=== PATIENT | male | born 1950 | race Caucasian/White ===

== ENCOUNTER → 2017-10-29 | Outpatient (CLI) | payer MEDICARE ==
[2017-10-29 09:42] LABS: HEMATOCRIT 42.9 % (42.0-52.0); HEMOGLOBIN 14.3 g/dl (13.5-17.5); MEAN CORPUSCULAR HEMOGLOBIN 29.5 pg (27.0-33.0); MEAN CORPUSCULAR HGB CONC 33.3 g/dl (32.0-36.5); MEAN CORPUSCULAR VOLUME 88.5 fl (80.0-96.0); PLATELET COUNT, AUTOMATED 229 10^3/uL (150-450); RED BLOOD COUNT 4.85 10^6/uL (4.30-6.10); RED CELL DISTRIBUTION WIDTH 12.3 % (11.5-14.5); WHITE BLOOD COUNT 6.5 10^3/uL (4.0-10.0)
[2017-10-29 09:53] LABS: INR 0.96; PROTHROMBIN TIME 12.9 SECONDS (12.1-14.4)
[2017-10-29 10:29] LABS: ERYTHROCYTE SEDIMENTATION RATE 10 mm/hr (0-20)
[2017-10-29 10:32] LABS: ALBUMIN 3.8 GM/DL (3.2-5.2); ALBUMIN/GLOBULIN RATIO 1.27 (1.00-1.93); ALKALINE PHOSPHATASE 68 U/L (45-117); ALT/SGPT 31 U/L (12-78); ANION GAP 6 MEQ/L (8-16); AST/SGOT 17 U/L (7-37); BILIRUBIN,TOTAL 0.6 MG/DL (0.2-1.0); BLOOD UREA NITROGEN 26 MG/DL (7-18); CALCIUM LEVEL 8.8 MG/DL (8.8-10.2); CARBON DIOXIDE LEVEL 30 MEQ/L (21-32); CHLORIDE LEVEL 107 MEQ/L (98-107); CREATININE FOR GFR 0.86 MG/DL (0.70-1.30); GLOMERULAR FILTRATION RATE > 60.0 (>49); GLUCOSE, FASTING 55 MG/DL (70-100); POTASSIUM SERUM 3.9 MEQ/L (3.5-5.1); SODIUM LEVEL 143 MEQ/L (136-145); TOTAL PROTEIN 6.8 GM/DL (6.4-8.2)
== END ==
LOC: M LAB 07:50
DX: Z01.818 Encounter for other preprocedural examination (principal); M17.12 Unilateral primary osteoarthritis, left knee; Z79.01 Long term (current) use of anticoagulants
CPT/HCPCS: 71046

== ENCOUNTER 2017-11-16 08:33 | Inpatient (IN) | payer MEDICARE ==
[2017-11-16] MEDS: ACETAMINOPHEN 500 MG TAB PO (08:45)
[2017-11-16] MEDS: LR 1,000 ML IV ×3 (09:00→14:00)
[2017-11-16] MEDS ORDERED: fentaNYL 100 MCG/2 ML INJECTION (J3010) As Ordered ×2 (09:06→09:24)
[2017-11-16] MEDS ORDERED: MIDAZOLAM INJ 2 MG/2 ML VIAL (J2250) As Ordered ×2 (09:06→09:23)
[2017-11-16] MEDS ORDERED: dexameTHASONE 10 MG/1 ML VIAL PRES.FREE (J1100) As Ordered (09:07)
[2017-11-16] MEDS ORDERED: EPINEPHrine INJ 1 MG/ML 1ML AMP As Ordered (09:07)
[2017-11-16] MEDS ORDERED: PROPOFOL 200 MG/20 ML VIAL As Ordered ×4 (09:23)
[2017-11-16] MEDS ORDERED: LIDOCAINE 2% INJ 100 MG/5 ML SDV (FOR ANES.) As Ordered (09:23)
[2017-11-16] MEDS: MIDAZOLAM INJ 2 MG/2 ML VIAL (J2250) IV (09:23)
[2017-11-16] MEDS ORDERED: ONDANSETRON 4MG/2ML VIAL (J2405) As Ordered (09:23)
[2017-11-16] MEDS: fentaNYL 100 MCG/2 ML INJECTION (J3010) IV (09:23)
[2017-11-16] MEDS ORDERED: ROPIvacaine 0.5% 30 ML INJECTION (J2795 PER 1MG) (10:27)
[2017-11-16] MEDS: EPINEPHrine INJ 1 MG/ML 1ML AMP As Ordered (11:36)
[2017-11-16] MEDS: TRANEXAMIC ACID 100 MG/ML 10ML VIAL As Ordered (11:37)
[2017-11-16] MEDS: ceFAZolin 1GM INJ (J0690 PER 500MG) As Ordered (11:37)
[2017-11-16] MEDS: BUPIVACAINE HCL 0.25% 10 ML VIAL As Ordered (12:43)
[2017-11-16] MEDS: BUPIVACAINE LIPOSOME/PF 1.3% 20 ML VIAL (13.3MG/ML)(EXPAREL) As Ordered (12:43)
[2017-11-16] MEDS ORDERED: MORPHINE 1MG/ML IN 0.9% NACL 100ML IV BAG As Ordered (12:59)
[2017-11-16] MEDS ORDERED: NALBUPHINE HCL 10 MG/ML AMP (J2300) IV (14:00)
[2017-11-16] MEDS ORDERED: MORPHINE 1MG/ML IN 0.9% NACL 100ML IV BAG IV (14:00)
[2017-11-16] MEDS ORDERED: ACETAMINOPHEN TAB 650MG DOSE (2X325MG) PO (14:00)
[2017-11-16] MEDS ORDERED: NALOXONE INJ 0.4 MG/1 ML VIAL (J2310) IV (14:00)
[2017-11-16] MEDS ORDERED: ONDANSETRON 4MG/2ML VIAL (J2405) IV ×2 (14:00)
[2017-11-16] MEDS ORDERED: fentaNYL 100 MCG/2 ML INJECTION (J3010) IV (14:00)
[2017-11-16] MEDS ORDERED: NORCO, ANEXSIA 5/325MG TABLET (HYDROcodone/ACETAMINOPHEN) PO (14:00)
[2017-11-16] MEDS ORDERED: FLEET ENEMA PR (14:00)
[2017-11-16] MEDS ORDERED: EPIDURAL/PCA KEYS XX (14:00)
[2017-11-16] MEDS ORDERED: diphenhydrAMINE INJ 50MG/ML VIAL (J1200) IV (14:00)
[2017-11-16 15:32] LABS: BASO % 0.4 % (0.0-1.0); EOS % 0.1 % (0.0-3.0); HEMATOCRIT 43.3 % (42.0-52.0); HEMOGLOBIN 14.6 g/dl (13.5-17.5); IMMATURE GRANULOCYTE % 0.5 % (0-3.0); LYMPH # 0.9 10^3/uL (1.5-4.5); LYMPH % 11.5 % (24.0-44.0); MEAN CORPUSCULAR HEMOGLOBIN 29.6 pg (27.0-33.0); MEAN CORPUSCULAR HGB CONC 33.7 g/dl (32.0-36.5); MEAN CORPUSCULAR VOLUME 87.7 fl (80.0-96.0); MONO # 0.2 10^3/uL (0.0-0.8); MONO % 2.6 % (0.0-5.0); NEUTROPHILS # 6.5 10^3/uL (1.8-7.7); NEUTROPHILS % 84.9 % (36.0-66.0); PLATELET COUNT, AUTOMATED 236 10^3/uL (150-450); RED BLOOD COUNT 4.94 10^6/uL (4.30-6.10); RED CELL DISTRIBUTION WIDTH 12.6 % (11.5-14.5); WHITE BLOOD COUNT 7.7 10^3/uL (4.0-10.0)
[2017-11-16 16:09] LABS: ALBUMIN 3.7 GM/DL (3.2-5.2); ALBUMIN/GLOBULIN RATIO 1.23 (1.00-1.93); ALKALINE PHOSPHATASE 63 U/L (45-117); ALT/SGPT 28 U/L (12-78); ANION GAP 9 MEQ/L (8-16); AST/SGOT 17 U/L (7-37); BILIRUBIN,TOTAL 0.3 MG/DL (0.2-1.0); BLOOD UREA NITROGEN 18 MG/DL (7-18); CARBON DIOXIDE LEVEL 27 MEQ/L (21-32); CHLORIDE LEVEL 104 MEQ/L (98-107); CPK CREATINE PHOSPHOKINASE 78 U/L (39-308); CREATININE FOR GFR 0.91 MG/DL (0.70-1.30); FREE THYROXINE INDEX 2.5 % (1.4-3.8); GLOMERULAR FILTRATION RATE > 60.0 (>49); GLUCOSE, FASTING 104 MG/DL (70-100); MAGNESIUM LEVEL 2.4 MG/DL (1.8-2.4); MB/CK RELATIVE INDEX 1.67 (< OR =4); POTASSIUM SERUM 5.5 MEQ/L (3.5-5.1); SODIUM LEVEL 140 MEQ/L (136-145); T UPTAKE 35 % (33-40); THYROXINE (T4) 7.1 UG/DL (4.5-12.0); TOTAL PROTEIN 6.7 GM/DL (6.4-8.2); TROPONIN I < 0.02 NG/ML (< 0.10)
[2017-11-16] MEDS: NS 1,000 ML IV (16:43)
[2017-11-16 17:50] LABS: POTASSIUM SERUM 4.4 MEQ/L (3.5-5.1)
[2017-11-16] MEDS: SENOKOT S TAB PO (21:02)
[2017-11-16 22:45] LABS: ANION GAP 10 MEQ/L (8-16); BLOOD UREA NITROGEN 19 MG/DL (7-18); CALCIUM LEVEL 8.8 MG/DL (8.8-10.2); CARBON DIOXIDE LEVEL 27 MEQ/L (21-32); CHLORIDE LEVEL 105 MEQ/L (98-107); CPK CREATINE PHOSPHOKINASE 69 U/L (39-308); GLOMERULAR FILTRATION RATE > 60.0 (>49); GLUCOSE, FASTING 134 MG/DL (70-100); MB/CK RELATIVE INDEX 1.59 (< OR =4); POTASSIUM SERUM 4.7 MEQ/L (3.5-5.1); SODIUM LEVEL 142 MEQ/L (136-145); TROPONIN I < 0.02 NG/ML (< 0.10)
[2017-11-17 06:14] LABS: HEMATOCRIT 40.9 % (42.0-52.0); HEMOGLOBIN 13.5 g/dl (13.5-17.5); MEAN CORPUSCULAR HEMOGLOBIN 29.2 pg (27.0-33.0); MEAN CORPUSCULAR VOLUME 88.3 fl (80.0-96.0); PLATELET COUNT, AUTOMATED 234 10^3/uL (150-450); RED BLOOD COUNT 4.63 10^6/uL (4.30-6.10); RED CELL DISTRIBUTION WIDTH 12.6 % (11.5-14.5); WHITE BLOOD COUNT 11.5 10^3/uL (4.0-10.0)
[2017-11-17 06:37] LABS: ANION GAP 9 MEQ/L (8-16); BLOOD UREA NITROGEN 22 MG/DL (7-18); CALCIUM LEVEL 8.9 MG/DL (8.8-10.2); CARBON DIOXIDE LEVEL 26 MEQ/L (21-32); CHLORIDE LEVEL 107 MEQ/L (98-107); CREATININE FOR GFR 1.07 MG/DL (0.70-1.30); GLOMERULAR FILTRATION RATE > 60.0 (>49); GLUCOSE, FASTING 141 MG/DL (70-100); MAGNESIUM LEVEL 2.2 MG/DL (1.8-2.4); POTASSIUM SERUM 4.3 MEQ/L (3.5-5.1); SODIUM LEVEL 142 MEQ/L (136-145)
[2017-11-17] MEDS ORDERED: ONDANSETRON 4 MG TAB (S0181) PO (06:45)
[2017-11-17] MEDS ORDERED: PERCOCET 5MG/325MG TAB PO (06:45)
[2017-11-17] MEDS: SENOKOT S TAB PO ×2 (08:26→20:00)
[2017-11-17] MEDS: MIRALAX *UNIT DOSE* 17GM PACKET PO (08:26)
[2017-11-17] MEDS ORDERED: SLF 3 ML SYR IV (09:00)
[2017-11-17] MEDS: PERCOCET 5MG/325MG TAB PO ×3 (10:07→20:01)
[2017-11-17] MEDS: SLF 3 ML SYR IV ×2 (11:37→22:00)
[2017-11-17] MEDS: RIVAROXABAN 10 MG TAB (XARELTO) PO (17:16)
[2017-11-18] MEDS: PERCOCET 5MG/325MG TAB PO (05:20)
[2017-11-18] MEDS: SLF 3 ML SYR IV (05:20)
[2017-11-18 07:00] LABS: HEMATOCRIT 37.4 % (42.0-52.0); HEMOGLOBIN 12.4 g/dl (13.5-17.5); MEAN CORPUSCULAR HEMOGLOBIN 29.3 pg (27.0-33.0); MEAN CORPUSCULAR HGB CONC 33.2 g/dl (32.0-36.5); MEAN CORPUSCULAR VOLUME 88.4 fl (80.0-96.0); PLATELET COUNT, AUTOMATED 203 10^3/uL (150-450); RED BLOOD COUNT 4.23 10^6/uL (4.30-6.10); RED CELL DISTRIBUTION WIDTH 12.8 % (11.5-14.5); WHITE BLOOD COUNT 10.1 10^3/uL (4.0-10.0)
[2017-11-18 07:21] LABS: ANION GAP 9 MEQ/L (8-16); BLOOD UREA NITROGEN 21 MG/DL (7-18); CALCIUM LEVEL 8.3 MG/DL (8.8-10.2); CARBON DIOXIDE LEVEL 26 MEQ/L (21-32); CHLORIDE LEVEL 107 MEQ/L (98-107); CREATININE FOR GFR 0.74 MG/DL (0.70-1.30); GLOMERULAR FILTRATION RATE > 60.0 (>49); GLUCOSE, FASTING 107 MG/DL (70-100); MAGNESIUM LEVEL 2.1 MG/DL (1.8-2.4); POTASSIUM SERUM 3.9 MEQ/L (3.5-5.1); SODIUM LEVEL 142 MEQ/L (136-145)
[2017-11-18] MEDS: MIRALAX *UNIT DOSE* 17GM PACKET PO (09:36)
[2017-11-18] MEDS: SENOKOT S TAB PO (09:36)
== END 2017-11-18 11:05 | disposition home or self-care (01) | DRG 470 ==
LOC: M OR 08:33 → M MS5PR 11-17 13:20 → M PCU 15:45
PROC: 0SRD0JZ Replacement of Left Knee Joint with Synthetic Substitute, Open Approach (ICD-10-PCS; principal; 2017-11-16 10:40)
DX: M17.12 Unilateral primary osteoarthritis, left knee (principal); E87.5 Hyperkalemia; I49.3 Ventricular premature depolarization

== ENCOUNTER → 2019-11-03 | Outpatient (CLI) | payer MEDICARE ==
[~2019-11-03] MED LIST: IBUP-1022 PO; PERC5TAB12 PO; XARE10TA PO
--- NOTE | 2019-11-06 09:23 | ECHO ---
DATE OF PROCEDURE: 11/03/2019 Age: 69 REFERRING PROVIDER: Dr. Natali King DO PATIENT LOCATION: Outpatient. REASON FOR STUDY: Heart murmur. 2D MEASUREMENTS: IVS 0.9 cm LV 6.4 cm LVPW 0.8 cm LA 5.3 cm Aorta 2.9 cm IVC 1.0 cm DOPPLER MEASUREMENT Peak velocity across the aortic valve 2.2 mm/s Peak velocity across the LVOT 0.8 mm/s Peak gradient across the aortic valve 20 mmHg Mean gradient across the aortic valve 11 mmHg Mitral E 1.2 Mitral A 0.6 with a ratio of 1.9 Maximum tricuspid valve velocity 2.7 mm/s 2D COMMENTS: 1. Mildly elevated left ventricle with normal left ventricular wall thickness and a normal global left ventricular systolic function. The estimated left ventricular systolic ejection fraction is 60% to 65%. 2. Moderately enlarged left atrium. Normal right atrium and right ventricle. 3. The atrial septum appears to be normal without evidence of defect or shunt. 4. Normal aortic root. 5. Mildly calcified aortic valve with mildly restricted leaflet motion. Mildly calcified mitral annulus with normal anterior mitral valve leaflet motion. Normal tricuspid valve and pulmonic valve. The proximal pulmonary artery branches appear to be normal in size. 6. The inferior vena cava was normal in size, central venous pressure might be normal. 7. Doppler detects moderately severe mitral regurgitation and mild tricuspid regurgitation. The calculated pulmonary artery systolic pressure varies between 30 to 40 mmHg. Assessment of the left ventricular diastolic function appeared to be normal. IMPRESSION: 1. Normal global left ventricular systolic function with a mildly enlarged left ventricle. Assessment of the left ventricular diastolic function appeared to be normal. 2. Aortic valve sclerosis with mild aortic stenosis, but no aortic regurgitation. 3. Mitral annulus calcification with moderately enlarged left atrium and nwjrbrbs-[id number] mitral regurgitation. 4. Mild tricuspid regurgitation with mild pulmonary hypertension. MTDD
== END ==
LOC: M CARPUL 09:18
PROVIDERS: ATTEND Family Medicine
DX: I35.0 Nonrheumatic aortic (valve) stenosis (principal); I34.0 Nonrheumatic mitral (valve) insufficiency; I36.1 Nonrheumatic tricuspid (valve) insufficiency; I27.20 Pulmonary hypertension, unspecified; R94.31 Abnormal electrocardiogram [ECG] [EKG]; R63.5 Abnormal weight gain; R00.8 Other abnormalities of heart beat; R00.1 Bradycardia, unspecified; R01.1 Cardiac murmur, unspecified

== ENCOUNTER → 2020-01-05 | Outpatient (CLI) | payer MEDICARE ==
[2020-01-05 10:56] LABS: HEMATOCRIT 45.1 % (42.0-52.0); HEMOGLOBIN 14.6 g/dl (13.5-17.5); MEAN CORPUSCULAR HEMOGLOBIN 29.6 pg (27.0-33.0); MEAN CORPUSCULAR HGB CONC 32.4 g/dl (32.0-36.5); MEAN CORPUSCULAR VOLUME 91.5 fl (80.0-96.0); PLATELET COUNT, AUTOMATED 253 10^3/uL (150-450); RED BLOOD COUNT 4.93 10^6/uL (4.30-6.10)
[2020-01-05 11:05] LABS: INR 0.92; PROTHROMBIN TIME 12.5 SECONDS (12.5-14.3)
[2020-01-05 11:16] LABS: ALBUMIN 3.9 GM/DL (3.2-5.2); ALT/SGPT 20 U/L (12-78); BILIRUBIN,TOTAL 0.5 MG/DL (0.2-1.0); BLOOD UREA NITROGEN 23 MG/DL (7-18); CALCIUM LEVEL 9.4 MG/DL (8.8-10.2); CARBON DIOXIDE LEVEL 31 MEQ/L (21-32); CHLORIDE LEVEL 105 MEQ/L (98-107); CREATININE FOR GFR 0.99 MG/DL (0.70-1.30); GLOMERULAR FILTRATION RATE > 60.0 (>49); GLUCOSE, FASTING 89 MG/DL (70-100); POTASSIUM SERUM 4.9 MEQ/L (3.5-5.1); SODIUM LEVEL 140 MEQ/L (136-145); TOTAL PROTEIN 7.3 GM/DL (6.4-8.2)
[2020-01-05 11:30] LABS: ERYTHROCYTE SEDIMENTATION RATE 12 mm/hr (0-20)
== END ==
LOC: M LAB 09:25
PROVIDERS: ATTEND Family Medicine
DX: Z01.812 Encounter for preprocedural laboratory examination (principal); M17.11 Unilateral primary osteoarthritis, right knee

== ENCOUNTER → 2020-01-24 | Outpatient (CLI) | payer MEDICARE ==
[~2020-01-24] MED LIST changes: +[UNRECOGNIZED DRUG - CODE] PO
== END ==
LOC: M LABSMTC 09:54
PROVIDERS: ATTEND Anesthesiology
DX: Z01.812 Encounter for preprocedural laboratory examination (principal); Z20.828 Contact with and (suspected) exposure to other viral communicable diseases

== ENCOUNTER 2020-01-29 06:55 | Inpatient (IN) | payer MEDICARE ==
[2020-01-29] VITALS (7 sets, daily range): BP systolic 127–155; BP diastolic 62–77
[~2020-01-29] VITALS: Ht 180.3 cm; Wt 115.0 kg
[2020-01-29] MEDS ORDERED: ceFAZolin SOD 2 GM in IV 1 EA IV ONE (07:00)
[2020-01-29] MEDS ORDERED: ACETAMINOPHEN 500 MG TAB PO ONE (07:00)
[2020-01-29] MEDS ORDERED: MIDAZOLAM INJ 2MG/2ML VIAL (J2250 PER 1MG) IV PRN (07:01)
[2020-01-29] MEDS ORDERED: fentaNYL 100 MCG/2 ML INJECTION (J3010) IV PRN ×2 (07:01→12:15)
[2020-01-29] MEDS ORDERED: fentaNYL 100 MCG/2 ML INJECTION (J3010) As Ordered ONE ×2 (08:06→08:11)
[2020-01-29] MEDS ORDERED: MIDAZOLAM INJ 2MG/2ML VIAL (J2250 PER 1MG) As Ordered ONE ×2 (08:06→08:10)
[2020-01-29] MEDS ORDERED: ROPIvacaine 0.5% 30ML INJECTION (J2795 PER 1MG) As Ordered ONE (08:13)
[2020-01-29] MEDS ORDERED: dexameTHASONE 4 MG/ML 1ML VIAL (J1100 PER 1MG) As Ordered ONE ×2 (08:13→10:13)
[2020-01-29] MEDS ORDERED: LIDOCAINE 1% MDV 20ML VIAL As Ordered ONE (08:13)
[2020-01-29] MEDS ORDERED: TRANEXAMIC ACID 100 MG/ML 10ML VIAL As Ordered ONE (08:27)
[2020-01-29] MEDS ORDERED: BUPIVACAINE LIPOSOME/PF 1.3% 20ML VIAL (13.3MG/ML)(EXPAREL)(C9290 PER1MG) As Ordered ONE (08:28)
[2020-01-29] MEDS ORDERED: EPINEPHrine INJ 1 MG/ML 1ML AMP As Ordered ONE (08:28)
[2020-01-29] MEDS ORDERED: ceFAZolin 1GM VIAL (J0690 PER 500MG) As Ordered ONE (08:28)
[2020-01-29] MEDS ORDERED: BUPIVACAINE HCL 0.25% 10ML VIAL As Ordered ONE (08:28)
[2020-01-29] MEDS ORDERED: dexameTHASONE 10MG/1ML VIAL PRES.FREE (J1100 PER 1MG) XX ONE (08:30)
[2020-01-29] MEDS ORDERED: ROPIvacaine 0.5% 30ML INJECTION (J2795 PER 1MG) XX ONE (08:30)
[2020-01-29] MEDS ORDERED: LIDOCAINE 1% MDV 20ML VIAL XX ONE (08:30)
[2020-01-29] MEDS ORDERED: ONDANSETRON 4MG/2ML VIAL As Ordered ONE (10:12)
[2020-01-29] MEDS ORDERED: METOCLOPRAMIDE INJ 10MG/2ML VIAL (J2765 PER 1) As Ordered ONE (10:13)
[2020-01-29] MEDS ORDERED: propofoL 200 MG/20 ML VIAL As Ordered ONE ×2 (10:52→11:20)
[2020-01-29] MEDS ORDERED: oxyCODONE 5MG TAB PO PRN (12:15)
[2020-01-29] MEDS ORDERED: ONDANSETRON 4MG/2ML VIAL IV PRN ×2 (12:15→13:15)
[2020-01-29] MEDS ORDERED: HYDROMORPHONE HCL 0.5 MG/ 0.5 ML SYRINGE (J1170 PER 1) IV PRN (12:15)
[2020-01-29] MEDS ORDERED: LR 1,000 ML IV SCH (12:15)
--- NOTE | 2020-01-29 12:56 | REP ---
INDICATION: post op in pacu. COMPARISON: No comparison study.. TECHNIQUE: AP and lateral views obtained portably. FINDINGS: AP and lateral views of the right knee demonstrate right knee arthroplasty components in good position. Periarticular soft tissue emphysema and anterior skin taz are noted.. No fracture or subluxation is seen. . IMPRESSION: Status post right knee arthroplasty.. <Electronically signed by Claude Reid > 01/29/20 [id number]
[2020-01-29] MEDS ORDERED: MORPHINE 4 MG/ML 1ML VIAL/SYRINGE (J2270) IV PRN ×2 (13:15)
[2020-01-29] MEDS ORDERED: ACETAMINOPHEN TAB 650MG DOSE (2X325MG) PO PRN (13:15)
[2020-01-29] MEDS ORDERED: PERCOCET 5MG/325MG TAB PO PRN ×4 (13:15→14:58)
[2020-01-29] MEDS: LR 1,000 ML IV SCH ×2 (13:15→20:43)
--- NOTE | 2020-01-29 13:46 | RO ---
OPERATIVE NOTE DATE OF OPERATION: 01/29/2020 PREOPERATIVE DIAGNOSIS: Advanced varus tricompartmental osteoarthritis of right knee. POSTOPERATIVE DIAGNOSIS: Advanced varus tricompartmental osteoarthritis of right knee. PROCEDURE: Right total knee arthroplasty using size 7 cruciate-retaining femoral component with size 7 tibial tray and 12 mm rotating platform polyethylene insert, 38 mm polyethylene button, all components cemented. Prosthesis made by [employer]. It was Attune knee. SURGEON: Siva Tolbert MD CHIEF ELECTRICIAN: EMERY Wen ANESTHESIA: Spinal with right femoral nerve block. SPECIMEN: Joint surface. COMPLICATIONS: None. PROCEDURE: Antibiotics were given intravenously preoperatively and then successful right femoral nerve block and then spinal anesthetic was induced. Right lower extremity was carefully prepped and draped in usual sterile fashion and then elevated. After appropriate time out tourniquet was inflated. Longitudinal incision was made from medial parapatellar approach to the knee. The Bovie cautery was used to coagulate the crossing vessels. Subperiosteal dissection around the proximal medial tibia and lateral tibial condyle was performed and the patella was everted and the knee was flexed. The ACL was derided. Drill was placed down the center of the femoral canal followed by intramedullary zulma and distal femoral cutting jig set at 9 mm resection level at 5 degree valgus for a right knee. The block was pinned into position, distal femoral cut was performed and the AP sizing jig surprisingly measured for size 7 compared to what he had on the opposite side which was 5. We checked it several times and it really was a size 7. 3-degrees external rotation was dialed in for right knee and drill holes were placed, followed by the four-in-one block. We then performed anterior, posterior and chamfer cuts, taking great care to protect the surrounding soft tissues. We then exposed the proximal tibia and used extramedullary alignment jig to help estimate being parallel to the mechanical axis of the tibia. We referenced off very dished, sclerotic and marbleized medial tibial condyle at 4 mm resection level, less than that but down to about 2 mm. The block was pinned into position. I then checked the other side, would take about 6 mm off the lateral good side. Block was then pinned into position, secondary check with extramedullary zulma confirmed that we appeared to be parallel to the mechanical axis. Thus we then performed proximal tibial osteotomy. The osteophytes posterolateral and posteromedial on the tibia were excised with saw and rongeurs. At this point we placed a laminar director of reimbursement laterally and performed completion medial meniscectomy and then debridement of the posteromedial osteophytes which were substantial. We then placed laminar director of reimbursement medially and performed completion lateral meniscectomy and debrided large posterolateral osteophytes. Once we were satisfied that all the osteophytes were well debrided we trialed with spacer blocks and 8 mm was a bit loose. The 10 mm was reasonable but the 12 fit best, good stability and it was actually quite symmetric to varus/valgus stress testing, both in flexion and extension and this was similar to what we put on the other side. We then exposed the proximal tibia and sized for size #7 tibial tray which was then pinned into position followed by the reamer and broach and trial polyethylene was placed followed by trial femoral component, brought the knee into extension, everted the patella, performed patellar osteotomy, sized for 38 button, lug holes were drilled, trial placed and patellofemoral tracking was actually very anatomic and he actually had very good flexion and extension with 12 mm spacer and very good stability. Thus I felt that this would be appropriate size implant and the lug holes for the femur were drilled. I did do notchplasty using the template after performing the chamfer cuts. We then removed all the trial components, copiously pulse lavaged and irrigated out the knee joint. Exparel was placed in subperiosteal tissues around the distal femur and proximal tibia. Ms. Brook Sykes mixed the cement on the back table as I prepared the bony surfaces for cementing with copious amount of pulsatile lavage irrigant solution as well as drying them thoroughly. She was also critical to the success of this difficult surgery by holding the appropriate soft tissue manipulation and helped to flex and extend the knee as needed, helped to mix the cement, helped to prepare the patient for surgery, helped to close the wound amongst many other tasks to allow me to perform the operation smoothly, efficiently and safely. Once all the bony surfaces were thoroughly dried, I cemented the tibial tray, removed excess cement and placed polyethylene and then cemented the femoral component, removed excess cement and brought the knee into extension and then cemented the patellar button and removed excess cement and held the knee in extension with patellar clamp in place until the cement hardened. I did check the notch to make sure the cement did not extrude through the hole. We copiously irrigated out the knee joint as we were waiting for the cement to harden and then placed Tranexamic acid into the knee joint. We then began closing the apex of the arthrotomy with two #1 PDS sutures, medial parapatellar area was closed with #1 PDS suture and then double-arm running Stratafix was used to close the capsule. We released the tourniquet, we irrigated between layers, closed the deep subdermal tissue with interrupted PDS sutures, skin was closed with taz, covered with Optifoam and dry, sterile bulky dressing. He was then transferred to the recovery room in stable condition. There were no intraoperative complications.
--- NOTE | 2020-01-29 14:14 | CR.PDOC ---
General Date of Consultation: Jan 29, 2020 Referring Provider: Siva Hurtado Primary Care Physician: Natali King Attending Physician: BRIAN BLACKMAN DO Consultation REASON FOR CONSULTATION/CHIEF COMPLAINT: Post-op medical care and medication management HISTORY OF PRESENT ILLNESS: Hossein Harkins is a 69-year-old male who was admitted to the hospital today after a right total knee arthroplasty with Dr. Hurtado. The patient underwent this elective procedure today due to osteoarthritis of his knee. He had a left total knee arthroplasty in 2018, which he reports helped his pain from osteoarthritis in the left knee. He did have some PVCs noted on the monitor during that surgery in 2018 and was monitored in PCU postoperatively at that time without any further complication. He states his right knee currently feels somewhat sore. Denies any numbness or tingling in the right lower extremity. There were no intraoperative complications per the surgeon's operative report. He patient did receive preoperative antibiotics. Anesthesia was achieved with a right femoral nerve block and spinal anesthetic. Prior to his procedure today, the patient obtained cardiac clearance from Dr. Alcaraz, and required echocardiogram due to a newly discovered murmur. Echocardiogram revealed "[id number] mitral regurgitation". ALLERGIES: Please see below. HOME MEDICATIONS: Please see below. PAST MEDICAL HISTORY: 1. Osteoarthritis 2. Mitral regurgitation PAST SURGICAL HISTORY: 1. Left total knee arthroplasty 2017 2. Right total knee arthroplasty 2019 FAMILY HISTORY: Noncontributory SOCIAL HISTORY: Never smoker. No alcohol use. No IV/illicit drug use. REVIEW OF SYSTEMS: CONSTITUTIONAL: Denies fevers, chills, night sweats, fatigue, unexpected change in weight. HEENT: Denies change in vision, change in hearing. CARDIOVASCULAR: Denies chest pain, palpitations, shortness of breath, lightheadedness. RESPIRATORY: Denies dyspnea, cough, wheezing. GASTROINTESTINAL: Denies nausea, vomiting, abdominal pain, diarrhea, constipation, blood in stool. SKIN: Denies rash, lesions. MUSCULOSKELETAL: Endorses right knee pain per HPI. NEUROLOGICAL: Denies headache, dizziness, weakness. PSYCHIATRIC: Denies change in mood. PHYSICAL EXAMINATION: VITAL SIGNS: Please see below. GENERAL: Alert, comfortable, in no acute distress HEENT: Normocephalic, atraumatic, EOMI, moist mucous membranes NECK: Supple, trachea midline CARDIOVASCULAR: Regular rate and rhythm, normal S1 and S2. III/ systolic murmur appreciated over the apex. RESPIRATORY: Clear to auscultation bilaterally with equal air entry bilaterally. No wheezing, rhonchi, or rales. ABDOMEN: Soft, nontender, nondistended, bowel sounds present EXTREMITIES: Right knee wrapped in nehemiah bandage. No cyanosis or edema. Pulses 2+/4 in bilateral upper and lower extremities NEUROLOGIC: Alert and oriented x3 to person, place and time. Moves all four extremities spontaneously. No focal deficits appreciated PSYCHIATRIC: Mood and affect appropriate LABORATORY DATA: Please see below. ASSESSMENT/PLAN: 69-year-old male postop day 0 from right total knee arthroplasty seen in consultation today from the hospitalist service for postoperative medical management. 1. Status post right total knee arthroplasty, postop day #0 - Pain management with IV morphine and PO percocet PRN. IV zofran for nausea PRN. - Perioperative abx with cefazolin per surgery - Aspirin 81 mg BID per surgery - PT/OT eval with ARU screen for possible rehab 2. Hx PVCs during left TKA in 2018 - check BMP and CBC - no cardiac rhythm abnormalities reported after today's procedure. 3. Systolic heart murmur - recent echocardiogram results reviewed, shows "aekqhzcw-xi-nfwaps mitral r egurgitation" - evaluated by cardiology prior to surgery for clearance - outpatient management per cardiology 4. Osteoarthritis - now s/p bilateral TKA DVT prophylaxis: Teds/SCDs perioperatively Vital Signs/I&O Vital Signs Date Time Temp Pulse Resp B/P (MAP) Pulse Ox O2 Delivery O2 Flow Rate FiO2 01/29/20 13:18 18 01/29/20 13:00 97.6 75 130/76 (94) 97 Room Air 01/29/20 11:49 2 Allergies Coded Allergies: No Known Allergies (Unverified , 01/25/20) Home Medications Scheduled PRN Acetaminophen (Pain Relief) 650 Mg Tablet.er, Unknown Dose PO PRN PRN for PAIN, (Reported) GME ATTESTATION GME ATTESTATION My faculty preceptor for this patient encounter was physically present during the encounter and was fully available. All aspects of the patient interview, examination, medical decision making process, and medical care plan development were reviewed and approved by the faculty preceptor. The faculty preceptor is aware and concurs with the plan as stated in the body of this note and will attest to such by his/her cosignature. ATTENDING NOTE I, Brian Blackman, performed a history of physical examination of the patient and discussed the management with the resident. I reviewed the resident's note and agree with the documented findings and plan of care. KATE GÓMEZ D.O. Jan 29, 2020 14:14 BRIAN BLACKMAN DO Jan 29, 2020 19:22
[2020-01-29 14:27] LABS: HEMATOCRIT 42.7 % (42.0-52.0); HEMOGLOBIN 14.4 g/dl (13.5-17.5); MEAN CORPUSCULAR HGB CONC 33.7 g/dl (32.0-36.5); PLATELET COUNT, AUTOMATED 242 10^3/uL (150-450); WHITE BLOOD COUNT 9.7 10^3/uL (4.0-10.0)
[2020-01-29 14:56] LABS: BLOOD UREA NITROGEN 19 MG/DL (7-18); CALCIUM LEVEL 9.3 MG/DL (8.8-10.2); CARBON DIOXIDE LEVEL 27 MEQ/L (21-32); CHLORIDE LEVEL 106 MEQ/L (98-107); CREATININE FOR GFR 1.03 MG/DL (0.70-1.30); GLOMERULAR FILTRATION RATE > 60.0 (>49); GLUCOSE, FASTING 124 MG/DL (70-100); POTASSIUM SERUM 4.4 MEQ/L (3.5-5.1); SODIUM LEVEL 138 MEQ/L (136-145)
[2020-01-29] MEDS: ceFAZolin SOD 2 GM in IV 1 EA IV SCH (17:27)
[2020-01-29 17:57] LABS: MAGNESIUM LEVEL 2.2 MG/DL (1.8-2.4)
[2020-01-29] MEDS: ASPIRIN 81 MG ENTERIC TAB PO SCH (20:53)
[2020-01-30] MEDS: ceFAZolin SOD 2 GM in IV 1 EA IV SCH ×2 (02:35→09:27)
[2020-01-30 05:53] VITALS: BP 129/75
[2020-01-30] MEDS ORDERED: PERC5TAB12 PO (06:49)
[2020-01-30] MEDS ORDERED: ECOT81TA5 PO (06:49)
[2020-01-30 07:47] LABS: HEMATOCRIT 38.1 % (42.0-52.0); HEMOGLOBIN 12.5 g/dl (13.5-17.5); MEAN CORPUSCULAR HEMOGLOBIN 29.6 pg (27.0-33.0); MEAN CORPUSCULAR HGB CONC 32.8 g/dl (32.0-36.5); MEAN CORPUSCULAR VOLUME 90.3 fl (80.0-96.0); PLATELET COUNT, AUTOMATED 227 10^3/uL (150-450); RED BLOOD COUNT 4.22 10^6/uL (4.30-6.10); WHITE BLOOD COUNT 13.4 10^3/uL (4.0-10.0)
[2020-01-30 07:58] LABS: ALBUMIN 3.4 GM/DL (3.2-5.2); ALT/SGPT 18 U/L (12-78); BILIRUBIN,TOTAL 0.5 MG/DL (0.2-1.0); BLOOD UREA NITROGEN 26 MG/DL (7-18); CALCIUM LEVEL 8.5 MG/DL (8.8-10.2); CARBON DIOXIDE LEVEL 26 MEQ/L (21-32); CHLORIDE LEVEL 108 MEQ/L (98-107); CREATININE FOR GFR 0.94 MG/DL (0.70-1.30); GLOMERULAR FILTRATION RATE > 60.0 (>49); GLUCOSE, FASTING 126 MG/DL (70-100); MAGNESIUM LEVEL 2.3 MG/DL (1.8-2.4); POTASSIUM SERUM 4.4 MEQ/L (3.5-5.1); SODIUM LEVEL 141 MEQ/L (136-145); TOTAL PROTEIN 6.4 GM/DL (6.4-8.2)
[2020-01-30] MEDS ORDERED: MIRALAX *UNIT DOSE* 17GM PACKET PO SCH (09:00)
[2020-01-30] MEDS ORDERED: MOM 30ML SUSPENSION UDC PO SCH (09:00)
--- NOTE | 2020-01-30 09:03 | ECGEPIP ---
[facility] Test Date: 2020-01-29 Pat Name: KANWAL MCKINNEY Department: Room: B5478-25 Gender: Male Roentgenologist: GERMAN : 1950 Requested By: BRIAN Valadez Order Number: [id number] Reading MD: Demetrius Alcaraz Measurements Intervals [place] Rate: 79 P: 58 LA: 176 QRS: 36 QRSD: 90 T: 64 QT: 377 QTc: 435 Interpretive Statements SINUS RHYTHM WITH FREQUENT VENTRICULAR PREMATURE COMPLEXES POSSIBLE LEFT ATRIAL ENLARGEMENT ABNORMAL RHYTHM ECG No significant change compared with 11/16/2017. Electronically Signed on 01-30-2020 9:02:41 EST by Demetrius Alcaraz
[2020-01-30] MEDS: ASPIRIN 81 MG ENTERIC TAB PO SCH (09:27)
[2020-01-30 10:00] VITALS: BP 131/74
--- NOTE | 2020-01-30 10:30 | IPNPDOC ---
Text Note Date of Service The patient was seen on 01/30/20. NOTE SUBJECTIVE: Patient was seen and examined at bedside. States he continues to have right knee soreness. He has gotten up to use the bathroom twice without too much difficulty or pain. He states he has not been evaluated by PT yet. No chest pain or palpitations. OBJECTIVE: VITAL SIGNS: See below GENERAL: Alert, comfortable, in no acute distress HEENT: Normocephalic, atraumatic, EOMI, moist mucous membranes NECK: Supple, trachea midline CARDIOVASCULAR: Regular rate and rhythm, normal S1 and S2. III/ systolic murmur appreciated over the apex. RESPIRATORY: Clear to auscultation bilaterally with equal air entry bilaterally. No wheezing, rhonchi, or rales. ABDOMEN: Soft, nontender, nondistended, bowel sounds present EXTREMITIES: Right knee wrapped in nehemiah bandage. No cyanosis or edema. Pulses 2+/4 in bilateral upper and lower extremities NEUROLOGIC: Alert and oriented x3 to person, place and time. Moves all four extremities spontaneously. No focal deficits appreciated PSYCHIATRIC: Mood and affect appropriate ASSESSMENT/PLAN: 69-year-old male postop day 0 from right total knee arthroplasty seen in [facility] today from the hospitalist service for postoperative medical management. 1. Status post right total knee arthroplasty, postop day #1 - Pain management with IV morphine and PO percocet PRN. IV zofran for nausea PRN. - Perioperative abx with cefazolin per surgery - Aspirin 81 mg BID per surgery - PT/OT eval with ARU screen for possible rehab 2. Hx PVCs during left TKA in 2018 - check BMP and CBC - no cardiac rhythm abnormalities reported after yesterday's procedure. 3. Systolic heart murmur - recent echocardiogram results reviewed, shows "iywjmvqg-sw-qcodpg mitral regurgitation" - evaluated by cardiology prior to surgery for clearance - outpatient management per cardiology, following with Dr. Alcaraz 4. Osteoarthritis - now s/p bilateral TKA DVT prophylaxis: Teds/SCDs perioperatively Attending attestation: Patient seen and examined independently. Agree with student's note. VS,Fishbone, I+O VS, Fishbone, I+O Laboratory Tests 01/29/20 14:06 01/30/20 07:13 Vital Signs Date Time Temp Pulse Resp B/P (MAP) Pulse Ox O2 Delivery O2 Flow Rate FiO2 01/30/20 05:53 98.6 57 18 129/75 (93) 92 Room Air 01/29/20 11:49 2 I&O- Last 24 Hours up to 6 AM 01/30/20 06:00 Intake Total 3725 ml Output Total 420 ml Balance 3305 ml KATE GÓMEZ D.O. Jan 30, 2020 10:30 CODEY BALDWIN MD Jan 31, 2020 06:47
== END 2020-01-30 11:15 | disposition home or self-care (01) | DRG 470 ==
LOC: M SDC 06:55 → EDSTATUS 08:40 → M MS5PR 12:55 → M SDC 12:55 → M MS5PR 01-30 11:15
PROVIDERS: ADMIT Orthopaedic Surgery; ATTEND Orthopaedic Surgery
PROC: 0SRC0J9 Replacement of Right Knee Joint with Synthetic Substitute, Cemented, Open Approach (ICD-10-PCS; principal; 2020-01-29 08:40)
DX: M17.11 Unilateral primary osteoarthritis, right knee (principal); I34.0 Nonrheumatic mitral (valve) insufficiency; Z96.653 Presence of artificial knee joint, bilateral

== ENCOUNTER → 2020-11-06 | Outpatient (CLI) | payer OTHER ==
[~2020-11-06] MED LIST changes: +ECOT81TA5 PO; +ISOVUE-300 61% 50ML VIAL As Ordered ONE; +LIDOCAINE 1% MDV 20ML VIAL As Ordered ONE; +[UNRECOGNIZED DRUG - CODE] PO; -[UNRECOGNIZED DRUG - CODE] PO
--- NOTE | 2020-11-06 11:09 | REP ---
INDICATION: OA LT HIP. COMPARISON: None TECHNIQUE: The procedure was performed by ZAY Chavez, under the direct supervision of Dr. Rubio. The benefits and risks of the procedure were explained to the patient, and an informed consent was obtained. Directly prior to the start of the procedure, a formal time-out was completed in the procedure room. The left femoral neck joint space was localized using fluoroscopic guidance. The skin was prepped and draped in a sterile fashion. Approximately 5 mL of 1% Lidocaine 10 mg/ml was used as a local anesthetic. Using fluoroscopic guidance, a #22 gauge spinal needle was inserted and advanced into the left femoral neck joint space. Approximately 1 mL of Isovue 300 was injected to verify placement. Five ML 1% lidocaine 10 mg/ml was injected into the joint space. The needle was removed and hemostasis was achieved. FINDINGS: The patient tolerated the procedure well and there were no immediate complications. IMPRESSION: 1. Fluoroscopically guided intra-articular pain injection. 0.1 minutes of fluoroscopy time was utilized for this procedure. Some fluoroscopic images are performed with last image hold technology. These images require no additional radiation. <Electronically signed by Rashmi Ernst > 11/06/20 1018 <Electronically signed by aJy Rubio > 11/06/20 1106
== END ==
LOC: M RADPRO 09:28
PROVIDERS: ATTEND Orthopaedic Surgery
DX: M16.12 Unilateral primary osteoarthritis, left hip (principal)
CPT/HCPCS: 20610; 77002; Q9967

== ENCOUNTER → 2020-11-14 | Outpatient (CLI) | payer OTHER ==
[~2020-11-14] MED LIST changes: -ISOVUE-300 61% 50ML VIAL As Ordered ONE; -LIDOCAINE 1% MDV 20ML VIAL As Ordered ONE
--- NOTE | 2020-11-14 14:46 | REP ---
INDICATION: LT HIP OA W/ PAIN ? LOSSEING ARTIFICAL KNEE JOINTS. COMPARISON: Knee radiographs are from January 29, 2020 and November 16, 2017. TECHNIQUE: 22.0 mCi of technetium 99 M MDP is injected and standard 3 phase imaging of the knees is acquired. FINDINGS: High flow study shows mild hyperemia in the soft tissues about the right knee compared to the left. Blood pool images demonstrate bilateral superficial venous varicosities in the lower extremities. Mildly increased soft tissue uptake right knee prosthesis region compared to the left. Delayed scan images demonstrate bilateral prosthesis bone interface uptake in the femur, tibia and patella of both knee joints right slightly more prominent than left. No focal area of increased uptake is seen on either side to suggest loosening or osteomyelitis. I note that the right knee was replaced more recently, January of 2020. IMPRESSION: No compelling evidence to suggest loosening or osteomyelitis. Superficial vein varicosities bilaterally. <Electronically signed by Claude Reid > 11/14/20 0421
== END ==
LOC: M RAD 10:05
PROVIDERS: ATTEND Orthopaedic Surgery
DX: M16.12 Unilateral primary osteoarthritis, left hip (principal); I82.813 Embolism and thrombosis of superficial veins of lower extremities, bilateral
CPT/HCPCS: 78315; A9503

== ENCOUNTER → 2023-06-11 | Day surgery (SDC) | payer MEDICARE ==
[~2023-06-11] VITALS: Ht 180.3 cm; Wt 117.5 kg
[~2023-06-11] MED LIST changes: +CHLO125TA PO; +LISI20TA33 PO; +ROSU10TA6 PO; +propofoL 200 MG/20 ML VIAL As Ordered ONE
[2023-06-11] MEDS: NS 1,000 ML IV ONE (09:13)
[2023-06-11 10:40] VITALS: TEMP 97.2
[2023-06-11 10:57] VITALS: BP 129/60; O2SAT 95
== END | disposition home or self-care (01) ==
LOC: M OPP 08:53
PROVIDERS: ATTEND Surgery
DX: Z12.11 Encounter for screening for malignant neoplasm of colon (principal); D12.6 Benign neoplasm of colon, unspecified; C20 Malignant neoplasm of rectum; K64.9 Unspecified hemorrhoids; I35.9 Nonrheumatic aortic valve disorder, unspecified; I10 Essential (primary) hypertension; Z79.02 Long term (current) use of antithrombotics/antiplatelets; Z79.899 Other long term (current) drug therapy

== ENCOUNTER → 2023-07-16 | Outpatient (CLI) | payer MEDICARE ==
[~2023-07-16] MED LIST changes: +GASTROGRAFIN SOLUTION 30ML As Ordered ONE; +ISOVUE-370 76% 100ML VIAL As Ordered ONE; -ROSU10TA6 PO; +ROSU10TA61 PO; -propofoL 200 MG/20 ML VIAL As Ordered ONE
== END ==
LOC: M RAD 13:13
PROVIDERS: ATTEND Surgery
DX: C20 Malignant neoplasm of rectum (principal); R91.8 Other nonspecific abnormal finding of lung field
CPT/HCPCS: 71260; 74177; Q9963; Q9967

== ENCOUNTER → 2023-07-21 | Outpatient (CLI) | payer MEDICARE ==
[~2023-07-21] MED LIST changes: -GASTROGRAFIN SOLUTION 30ML As Ordered ONE; -ISOVUE-370 76% 100ML VIAL As Ordered ONE; +PROHANCE 279.3MG/ML 15ML VIAL As Ordered ONE; +PROHANCE 279.3MG/ML 5ML VIAL As Ordered ONE
== END ==
LOC: M RAD 09:09
PROVIDERS: ATTEND Surgery
DX: C20 Malignant neoplasm of rectum (principal); R59.0 Localized enlarged lymph nodes
CPT/HCPCS: 72197; A9576

== ENCOUNTER → 2023-07-23 | Outpatient (CLI) | payer MEDICARE ==
[~2023-07-23] MED LIST changes: -PROHANCE 279.3MG/ML 15ML VIAL As Ordered ONE; -PROHANCE 279.3MG/ML 5ML VIAL As Ordered ONE
== END ==
LOC: M ONCR 07:47
PROVIDERS: ATTEND General Practice
DX: C20 Malignant neoplasm of rectum (principal); Z71.2 Person consulting for explanation of examination or test findings; Z79.899 Other long term (current) drug therapy; Z96.653 Presence of artificial knee joint, bilateral; Z96.642 Presence of left artificial hip joint; Z80.0 Family history of malignant neoplasm of digestive organs; Z80.1 Family history of malignant neoplasm of trachea, bronchus and lung

== ENCOUNTER 2023-08-20 10:38 | Outpatient (RCR) | payer MEDICARE ==
[~2023-08-20 10:38] MED LIST changes: +ONDA-84 PO; +XELO1TAB PO
== END 2023-08-22 ==
LOC: M ONCR 10:38
PROVIDERS: ATTEND General Practice
DX: Z51.0 Encounter for antineoplastic radiation therapy (principal); C20 Malignant neoplasm of rectum

== ENCOUNTER → 2023-09-22 | Outpatient (RCR) | payer MEDICARE ==
[~2023-09-22] MED LIST changes: +OXYC-517 PO
== END ==
LOC: M ONCR 08-23 10:40
PROVIDERS: ATTEND General Practice
DX: Z51.0 Encounter for antineoplastic radiation therapy (principal); C20 Malignant neoplasm of rectum

== ENCOUNTER 2023-09-28 10:44 | Outpatient (RCR) | payer MEDICARE ==
[2023-09-28] MEDS ORDERED: CAPE1TAB2 PO (15:43)
[2023-09-28 16:31] LABS: INR 1.01; PARTIAL THROMBOPLASTIN TIME 25.9 SECONDS (24.8-34.2)
[2023-10-26] MEDS ORDERED: LIDO30CR18 TOP (16:09)
== END 2023-10-23 ==
LOC: M ONCR 10:44
PROVIDERS: ATTEND General Practice
DX: Z51.0 Encounter for antineoplastic radiation therapy (principal); C20 Malignant neoplasm of rectum; Z51.89 Encounter for other specified aftercare

== ENCOUNTER → 2023-10-12 | Outpatient (CLI) | payer MEDICARE ==
[~2023-10-12] MED LIST changes: +CAPE1TAB2 PO; +LIDO30CR18 TOP
== END ==
LOC: M ONCR 10:19
PROVIDERS: ATTEND General Practice
DX: L59.8 Other specified disorders of the skin and subcutaneous tissue related to radiation (principal); W88.8XXA Exposure to other ionizing radiation, initial encounter

== ENCOUNTER → 2023-10-22 | Outpatient (CLI) | payer MEDICARE ==
[~2023-10-22] MED LIST changes: +LIDOCAINE 1% MDV 20ML VIAL As Ordered ONE; +MIDAZOLAM INJ 2MG/2ML VIAL As Ordered ONE; +NS 1,000 ML IV SCH; +ceFAZolin 2 GM/D5W 50 ML IV BAG As Ordered ONE; +ceFAZolin SOD 2 GM in IV 1 EA IV ONE; +fentaNYL 100 MCG/2 ML INJECTION As Ordered ONE
[2023-10-22 11:50] VITALS: TEMP 98
[2023-10-22] MEDS: NS 1,000 ML IV SCH (12:42)
[2023-10-22] MEDS: ceFAZolin SOD 2 GM in IV 1 EA IV ONE (12:42)
[2023-10-22 12:46] LABS: INR 0.99; PARTIAL THROMBOPLASTIN TIME 28.3 SECONDS (24.8-34.2); PROTHROMBIN TIME 12.8 SECONDS (12.5-14.5)
[2023-10-22 14:30] VITALS: BP 149/67; O2SAT 96
== END ==
LOC: M IRPRO 11:33
PROVIDERS: ATTEND Internal Medicine Hematology & Oncology
DX: C20 Malignant neoplasm of rectum (principal)
CPT/HCPCS: 36561; 85610; 85730; C1769; C1894; J0690; J1642; J2250; J3010

== ENCOUNTER → 2024-09-21 | Outpatient (CLI) | payer MEDICARE ==
[~2024-09-21] MED LIST changes: +IRON65TA2 PO; -LIDOCAINE 1% MDV 20ML VIAL As Ordered ONE; +MAGO400T2 PO; -MIDAZOLAM INJ 2MG/2ML VIAL As Ordered ONE; -NS 1,000 ML IV SCH; -ceFAZolin 2 GM/D5W 50 ML IV BAG As Ordered ONE; -ceFAZolin SOD 2 GM in IV 1 EA IV ONE; -fentaNYL 100 MCG/2 ML INJECTION As Ordered ONE
== END ==
LOC: M ONCR 10:03
PROVIDERS: ATTEND General Practice
DX: C20 Malignant neoplasm of rectum (principal); Z79.899 Other long term (current) drug therapy; Z93.3 Colostomy status

== ENCOUNTER → 2024-12-13 | Outpatient (CLI) | payer MEDICARE ==
[~2024-12-13] MED LIST changes: +CAPE500T23 PO; -IBUP-1022 PO; +IBUP600T42 PO; +ISOVUE-370 76% 100 ML VIAL ONE; -XELO1TAB PO
== END ==
LOC: M PLAIMG 08:41
PROVIDERS: ATTEND Nurse Practitioner Family
DX: C20 Malignant neoplasm of rectum (principal)
CPT/HCPCS: 71260; 74177; Q9967

== ENCOUNTER → 2024-12-18 | Outpatient (CLI) | payer MEDICARE ==
[~2024-12-18] MED LIST changes: -ISOVUE-370 76% 100 ML VIAL ONE; -ROSU10TA61 PO; +ROSU10TA90 PO
== END ==
LOC: M ONCR 11:00
PROVIDERS: ATTEND General Practice
DX: C20 Malignant neoplasm of rectum (principal); Z92.21 Personal history of antineoplastic chemotherapy; Z92.3 Personal history of irradiation; Z79.899 Other long term (current) drug therapy

== ENCOUNTER → 2025-01-01 | Outpatient (CLI) | payer MEDICARE | LOC: M PLARAD 09:41 | PROVIDERS: ATTEND General Practice | DX: C20 Malignant neoplasm of rectum (principal) | CPT/HCPCS: 78815; A9552 ==

== ENCOUNTER → 2025-02-01 | Outpatient (CLI) | payer MEDICARE | LOC: M ONCR 08:56 | PROVIDERS: ATTEND General Practice | DX: C20 Malignant neoplasm of rectum (principal); Z92.21 Personal history of antineoplastic chemotherapy; Z92.3 Personal history of irradiation; Z79.899 Other long term (current) drug therapy ==